=== PATIENT | male | born 1975 | race Caucasian/White ===

== ENCOUNTER 2018-11-05 16:55 | Emergency (ER) | payer OTHER ==
[~2018-11-05] VITALS: Ht 177.8 cm; Wt 145.2 kg
[~2018-11-05 16:55] MED LIST: ASPIR 8181 MG PO; COZAAR100 MG PO; DIPHENHYDRAMINE25 M3 PO; KEFLEX500 MG PO; NOHOMEMEDICATIONS; PROTONIX40 MG PO; VICODIN 5-5001 EACH; VICODIN 5-5001 EACH PO
[2018-11-05] MEDS ORDERED: KAPSPARGO SPRIN25 MG PO (17:02)
[2018-11-05 17:44] LABS: ABSOLUTE BASOPHILS 0.1 thou/uL (0.0-0.2); ABSOLUTE EOSINOPHILS 0.2 thou/uL (0.0-0.7); ABSOLUTE LYMPHOCYTES 3.4 thou/uL (0.8-5.3); ABSOLUTE MONOCYTES 0.7 thou/uL (0.0-1.2); BASOPHILS 0.8 %; HEMATOCRIT 45.2 % (42.0-52.0); HEMOGLOBIN 15.8 gm/dL (14.0-18.0); LYMPHOCYTES 33.1 %; MCV 88.7 fL (80.0-100.0); MONOCYTES 6.3 %; MPV 8.6 fl. (7.2-11.1); NUCLEATED RBCS 0 /100WBC; PLATELET COUNT* 277 thou/uL (150-400); POLYS 57.8 %; RBC 5.09 mil/uL (4.50-6.00); WBC 10.4 thou/uL (4.0-11.0)
[2018-11-05 17:52] LABS: ANION GAP 10 mmol/L (7-16); BUN 11 mg/dL (7-18); CALCIUM 9.2 mg/dL (8.5-10.1); CHLORIDE 101 mmol/L (98-107); CO2 26 mmol/L (21-32); GLUCOSE 106 mg/dL (70-99); POTASSIUM 3.6 mmol/L (3.5-5.1); SODIUM 137 mmol/L (136-145)
[2018-11-05 17:59] LABS: ALBUMIN 3.5 g/dL (3.4-5.0); ALKALINE PHOSPHATASE 84 U/L (46-116); SGOT 31 U/L (15-37); SGPT 76 U/L (30-65); TOTAL BILIRUBIN 0.2 mg/dL (<0.1-1.0); TOTAL PROTEIN 8.1 g/dL (6.4-8.2); TROPONIN-I LEVEL <0.06 ng/mL (<0.06)
[2018-11-05] MEDS ORDERED: PREDNISONE50 MG PO (18:20)
[2018-11-05] MEDS ORDERED: VENTOLIN HFA 1818 GM INH (18:20)
[2018-11-05 18:42] VITALS: BP 172/85
--- NOTE | 2018-11-06 10:24 | EKG ---
[place] [address] ELECTROCARDIOGRAM REPORT Name: ANSLEY MOYA Nino Room: [facility] [place]#: [id number] Admission: 11/05/18 Attend Phys: Discharge: 11/05/18 Date of : 75 Report #: [id number] THIS REPORT FOR: //name// [facility] ED Test Date: 2018-11-05 Test Time: 17:03:10 Pat Name: ANSLEY MOYA Department: Room: Gender: M Associate Professor Of Education: Lisseth TERRY : 1975 Requested By: Madelaine Barfield Order Number: [id number] MD: Yfn Rhoades Measurements Intervals [place] Rate: 86 P: 4 NV: 147 QRS: -9 QRSD: 99 T: 86 QT: 351 QTc: 420 Interpretive Statements Sinus rhythm Nonspecific T abnormalities, lateral leads ST elev, probable normal early repol pattern Compared to ECG 11/19/2016 13:10:30 T-wave abnormality now present ST (T wave) deviation still present Electronically Signed On 11-06-2018 10:24:36 APPLICATION COORDINATOR by Yfn Rhoades [email or web address] <ELECTRONICALLY SIGNED> By: Yfn Rhoades MD, FACC 11/06/18 1024 1703 1703 Yfn Rhoades MD, [facility] /EPI
== END 2018-11-05 18:44 | disposition home or self-care (01) ==
LOC: M.ERS 16:55
PROVIDERS: Nurse Practitioner Family
DX: J40 Bronchitis, not specified as acute or chronic (principal); K21.9 Gastro-esophageal reflux disease without esophagitis; Z90.49 Acquired absence of other specified parts of digestive tract; F17.200 Nicotine dependence, unspecified, uncomplicated; Z88.8 Allergy status to other drugs, medicaments and biological substances